=== PATIENT | female | born 2000 | race Caucasian/White ===

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

== ENCOUNTER 2019-02-01 12:57 | Emergency (ER) | payer MEDICAID ==
[~2019-02-01] VITALS: Ht 152.4 cm; Wt 70.3 kg
[2019-02-01 14:19] VITALS: BP 102/67
[2019-02-01] MEDS ORDERED: ONDANSETRON ODT 4 MG TAB PO ONE (14:45)
[2019-02-01] MEDS ORDERED: KETOROLAC TROMETH 15 mg/ml 1ML VL IM ONE (14:45)
[2019-02-01] MEDS ORDERED: diphenhdrAMINE HCL 25 MG CAP PO ONE (14:45)
== END 2019-02-01 16:51 | disposition home or self-care (01) ==
LOC: ER 12:57
DX: R51 Headache (principal); M54.2 Cervicalgia; M54.9 Dorsalgia, unspecified
CPT/HCPCS: 70450; 96372; 99284; J1885; Q0162

== ENCOUNTER 2020-02-01 20:22 | Emergency (ER) | payer MEDICAID ==
[~2020-02-01] VITALS: Ht 152.4 cm; Wt 65.8 kg
[2020-02-01 20:55] VITALS: BP 121/78
[2020-02-01] MEDS ORDERED: TETANUS-DIPTH-ACEL PERTUSSIS 0.5ML SYR Tdap IM ONE (22:00)
== END 2020-02-01 22:19 | disposition home or self-care (01) ==
LOC: ER 20:23
DX: S61.011A Laceration without foreign body of right thumb without damage to nail, initial encounter (principal); W26.0XXA Contact with knife, initial encounter; Y93.G1 Activity, food preparation and clean up; Y92.090 Kitchen in other non-institutional residence as the place of occurrence of the external cause; Y99.8 Other external cause status
CPT/HCPCS: 12002; 90471; 90715

== ENCOUNTER 2020-02-03 12:40 | Emergency (ER) | payer MEDICAID ==
[~2020-02-03] VITALS: Ht 154.9 cm; Wt 65.8 kg
[2020-02-03 12:45] VITALS: BP 129/77
== END 2020-02-03 13:13 | disposition home or self-care (01) ==
LOC: ER 12:40
DX: S61.011D Laceration without foreign body of right thumb without damage to nail, subsequent encounter (principal); X58.XXXD Exposure to other specified factors, subsequent encounter